=== PATIENT | female | born 1990 | race Caucasian/White ===

== ENCOUNTER 2019-10-09 16:37 | Emergency (ER) | payer OTHER ==
[2019-10-09 16:53] LABS: BILIRUBIN,URINE NEGATIVE (NEGATIVE); GLUCOSE, URINE (UA) NEGATIVE (NEGATIVE); KETONES,URINE (UA) NEGATIVE (NEGATIVE); LEUKOCYTE ESTERASE, URINE NEGATIVE (NEGATIVE); NITRITE,URINE NEGATIVE (NEGATIVE); OCCULT BLOOD,URINE NEGATIVE (NEGATIVE); PROTEIN,URINE NEGATIVE (NEGATIVE); UROBILINOGEN,URINE 0.2 (NORMAL) E.U./dL (NORMAL)
[2019-10-09 16:56] LABS: CLARITY,URINE CLEAR (CLEAR); HCG UR QUAL NEGATIVE
[2019-10-09 17:02] LABS: BACTERIA,URINE None Seen /HPF (None Seen); RBC,URINE 0-5 /HPF (0-5); SQUAMOUS EPITHELIAL CELL,UR NONE SEEN (<= Few)
[2019-10-09] MEDS ORDERED: AZITHROMYCIN 250 MG TABLET PO STA (17:03)
[2019-10-09] MEDS ORDERED: LIDOCAINE 1% 2 ML VIAL MC ONE (17:03)
[2019-10-09] MEDS ORDERED: cefTRIAXone 250 MG VIAL IM STA (17:03)
[2019-10-09] MEDS ORDERED: FLUCONAZOLE 100 MG TABLET PO STA (17:03)
--- NOTE | 2019-10-09 17:04 | ED Physician Documentation ---
PD HPI FEMALE - Stated complaint Stated Complaint: FEMALE - Chief complaint Chief Complaint: General - History obtained from History obtained from: Patient - Additional information Additional information: For about a week and a half she has had some vaginal discharge and inflammation. She thought it was a yeast infection but did not do anything about it. Today she was contacted by recent past partner who told her he probably had gonorrhea or chlamydia. No pelvic pain or fevers. Review of Systems Constitutional: denies: Fever, Chills GI: denies: Abdominal Pain, Nausea, Vomiting, Diarrhea : denies: Dysuria PD PAST MEDICAL HISTORY - Past Medical History Past Medical History: Yes SPA DIRECTOR: Fibroids - Past Surgical History Past Surgical History: Yes /SPA DIRECTOR: Other - Present Medications Home Medications: Ambulatory Orders Medication Instructions Recorded Confirmed No Known Home Medications 10/09/19 10/09/19 - Allergies Allergies/Adverse Reactions: Allergies Allergy/AdvReac Type Severity Reaction Status Date / Time No Known Drug Allergies Allergy Verified 10/09/19 16:47 - Social History Does the pt smoke?: No Smoking Status: Never smoker Does the pt drink ETOH?: No Does the pt have substance abuse?: No - Immunizations Immunizations are current?: Yes PD ED PE NORMAL - Vitals Vital signs reviewed: Yes - General General: Alert and oriented X 3, No acute distress - Abdomen Abdomen: Soft, Non tender - Derm Derm: No rash - Neuro Neuro: Alert and oriented X 3, Normal speech Results - Vitals Vitals: Vital Signs - 24 hr 10/09/19 16:41 Temperature 37.2 C Heart Rate 62 Respiratory 16 Rate Blood Pressure 125/69 O2 Saturation 98 Oxygen O2 Source Room air - Labs Labs: Laboratory Tests 10/09/19 16:46 Urine Color STRAW Urine Clarity CLEAR Urine pH 7.0 Ur Specific [place] <=1.005 Urine Protein NEGATIVE Urine Glucose (UA) NEGATIVE Urine Ketones NEGATIVE Urine Occult Blood NEGATIVE Urine Nitrite NEGATIVE Urine Bilirubin NEGATIVE Urine Urobilinogen 0.2 (NORMAL) Ur Leukocyte Esterase NEGATIVE Urine RBC 0-5 Urine WBC 0-3 Ur Squamous Epith Cells NONE SEEN Urine Bacteria None Seen Urine Culture Comments NOT INDICATED Urine HCG, Qual NEGATIVE PD MEDICAL DECISION MAKING - ED course ED course: 29-year-old woman with potential STD exposure versus yeast infection less likely. Treated with Diflucan, Rocephin, and Zithromax here. STD test pending. Departure - Departure Disposition: 01 Home, Self Care Clinical Impression: Cervicitis Condition: Good Record reviewed to determine appropriate education?: Yes Instructions: ED Chlamydia GC Poss Culture Pend Comments: We are testing for gonorrhea and chlamydia, we will still call if positive but you have been fully treated for either as well as yeast. Return if worse.
[2019-10-09 17:33] VITALS: BP 119/70
[2019-10-09 21:46] LABS: TRICHOMONAS VAGINALIS DNA NEGATIVE (NEGATIVE)
== END 2019-10-09 17:32 | disposition home or self-care (01) ==
LOC: ED 16:37
DX: N72 Inflammatory disease of cervix uteri (principal); Z20.2 Contact with and (suspected) exposure to infections with a predominantly sexual mode of transmission
CPT/HCPCS: 81001; 81025; 87491; 87591; 87661; 99283; A9270; 87086